=== PATIENT | female | born 1965 | race Caucasian/White ===

== ENCOUNTER 2019-07-30 06:34 | Day surgery (SDC) | payer BC ==
[2019-07-30] MEDS ORDERED: Sodium Chloride 0.9% 1,000 ML IV SCH (07:00)
[2019-07-30] MEDS ORDERED: fentaNYL 100 MCG/2 ML SDV ONE (07:39)
[2019-07-30] MEDS ORDERED: Propofol 200 MG/20 ML SDV ONE (07:40)
[2019-07-30] MEDS ORDERED: Midazolam 1 MG/ML 2 ML SDV ONE (07:40)
[2019-07-30 10:17] VITALS: PULSE 74
[2019-07-30 10:18] VITALS: BP 107/69
--- NOTE | 2019-07-30 13:26 | OR ---
DATE OF PROCEDURE: 07/30/2019 SURGEON: Homar Verde MD PROCEDURE: Colonoscopy. FINDINGS: Sigmoid colon polyp, approximately 5 mm, completely removed using cold biopsy using snare. COMPLICATIONS: None. COPY CENTER ASSOCIATE: None. RISKS: Risks, benefits, alternatives, and limitations including, but not limited to infection, bleeding, and perforation were explained to the patient, who wished to proceed. PROCEDURE IN DETAIL: The patient was placed in left lateral decubitus position. Digital rectal exam was performed without abnormality. Scope was introduced and advanced atraumatically to the ileocecal valve. A photo was taken of this. Scope was brought back through the ascending, transverse, descending colon, and retroflexed. No evidence of old or new blood. No masses. The aforementioned polyp was identified and completely removed. No abnormalities on retroflexion. The patient tolerated the procedure well. Homar Verde MD /[id number]
== END 2019-07-30 09:35 | disposition home or self-care (01) ==
LOC: JP.SDS 06:34
PROVIDERS: ATTEND Surgery
DX: Z12.11 Encounter for screening for malignant neoplasm of colon (principal); K63.5 Polyp of colon; E78.5 Hyperlipidemia, unspecified; Z88.2 Allergy status to sulfonamides
CPT/HCPCS: 45385; 88305; J2250; J2704; J3010

== ENCOUNTER 2021-09-30 10:37 | Emergency (ER) | payer BC | END 2021-09-30 11:46 | disposition left against medical advice (07) | LOC: JP.ED 10:37 | DX: M54.2 Cervicalgia (principal); Z53.21 Procedure and treatment not carried out due to patient leaving prior to being seen by health care provider ==